=== PATIENT | female | born 1970 | race Caucasian/White ===

== ENCOUNTER 2021-12-30 01:04 | Day surgery (SDC) | payer OTHER, SELFPAY ==
[2021-12-10 15:24] VITALS: BMI 28.0
[2021-12-30 09:13] VITALS: BP 132/81; PULSE 74; RESP 16; TEMP 36.3; O2SAT 100
[2021-12-30] MEDS: LACTATED RINGERS 1,000 ML 150 ML IV CONT (09:23)
--- NOTE | 2021-12-30 10:01 | P.PNAN_ITS ---
Anes - Initial Pre Proc Eval Procedure: Operation Date: 12/30/21 10:15 Proposed Procedures p Screening Colonoscopy - Karan Scales MD Date/Time: 12/30/21 10:01 Surgeon: Karan Scales MD Pre Op Diagnosis: neoplasm screening Patient Data Age: 51 Gender: F Height: 1.55 m Weight: 67.9 kg Last Vital Signs Temp 97.4 F L 12/30/21 09:13 Pulse 74 12/30/21 09:13 Resp 16 12/30/21 09:13 BP 132/81 12/30/21 09:13 Pulse Ox 100 12/30/21 09:13 O2 Del Method Room Air 12/30/21 09:13 Allergies Allergy/AdvReac Type Severity Reaction Status Date / Time No Known Allergies Allergy Verified 12/30/21 09:12 Home Medications Medication Instructions Recorded Confirmed Type cholecalciferol (vitamin D3) 50 50 mcg PO DAILY 12/10/21 12/10/21 History mcg (2,000 unit) capsule (Vitamin D3) Patient hx anesthesia problems: none Family hx anesthesia problems: none Results Review: All pre-operative results and documents have been reviewed as part of the pre- operative evaluation. [facility] Social History Social History Smoking status: Never smoker Alcohol intake: current Drinks per week: 1 Substance use: never Substance use type: does not use Living arrangements: with family Spiritual care concerns: No Anes - Eval Final PreProcedure Day of Procedure 12/30/21 10:01 Patient weight: overweight Heart: regular rate and rhythm Lungs: clear to auscultation Airway: Mallampati scale class II Neurological: alert and oriented Last oral intake: >/= 8 hours ASA classification: II Emergent: no Anesthetic plan: proceed Anesthesia type and monitoring: general GIVS and standard monitoring Results Review: All pre-operative results and documents have been reviewed as part of the pre- operative evaluation. Informed Consent: The patient's anesthetic plan and its attendant risks and benefits were discussed with the patient/family/POA. Questions were solicited and answers provided to the satisfaction of the patient/family/POA.
--- NOTE | 2021-12-30 10:07 | WPDGICN ---
Assessment and Plan Assessment and plan (1) Encounter for screening colonoscopy: Code(s): Z12.11 - Encounter for screening for malignant neoplasm of colon Status: Acute Assessment and Plan: Patient presents for screening colonoscopy. Appears to be at average risk for colon polyps. Further recommendations will be given after colonoscopy. GI Consult Note Consult date/time: 12/30/21 10:07 Reason for consult: Neoplasia screening. HPI: Maryann Mosqueda is a 51 year old female Presents for screening colonoscopy. Patient's current weight appetite bowel movements are normal. She denies abdominal pain. Patient has had no bleeding. Family history is noncontributory. Patient presents today for neoplasia screening colonoscopy. Review of Systems Review of Systems: Review of systems noncontributory. PMFSH Social History Social History Smoking status: Never smoker Alcohol intake: current Drinks per week: 1 Substance use: never Substance use type: does not use Living arrangements: with family Spiritual care concerns: No Meds Home Medications and Allergies Home Medications Medication Instructions Recorded Confirmed Type cholecalciferol (vitamin D3) 50 50 mcg PO DAILY 12/10/21 12/10/21 History mcg (2,000 unit) capsule (Vitamin D3) Allergies Allergy/AdvReac Type Severity Reaction Status Date / Time No Known Allergies Allergy Verified 12/30/21 09:12 Vital Signs Vital Signs - 24 hr 12/30/21 09:13 Temperature 97.4 F L Pulse Rate 74 Respiratory Rate 16 Blood Pressure 132/81 Pulse Oximetry 100 Oxygen Delivery Room Air Exam Narrative: Physical exam reveals patient to be alert. Vital signs stable. HEENT exam is unremarkable. Patient is anicteric. Lungs are clear to auscultation and percussion. Heart is without murmur or extra sounds. Abdominal exam bowel sounds are present soft nontender with no organomegaly. Digital external rectal exam is normal.
[2021-12-30 10:38] VITALS: BP 100/58; PULSE 78; RESP 16; O2SAT 97
[2021-12-30 10:48] VITALS: BP 109/77; PULSE 77; RESP 21; O2SAT 100
[2021-12-30 10:58] VITALS: BP 123/72; PULSE 74; RESP 16; O2SAT 100
== END 2021-12-30 11:12 | disposition home or self-care (01) ==
PROVIDERS: Visit Provider Internal Medicine Gastroenterology
PROC: 0DJD8ZZ Inspection of Lower Intestinal Tract, Via Natural or Artificial Opening Endoscopic (ICD-10-PCS; CPT 45378; principal; 2021-12-30 10:15)
DX: Z12.11 Encounter for screening for malignant neoplasm of colon (principal); K64.8 Other hemorrhoids; D12.0 Benign neoplasm of cecum
CPT/HCPCS: 45385; 88305; J2704; J7120